=== PATIENT | male | born 1935 | race Caucasian/White ===

== ENCOUNTER 2020-11-25 18:06 | Emergency (ER) | payer OTHER ==
[~2020-11-25] VITALS: Ht 177.8 cm; Wt 109.1 kg
[2020-11-25 18:20] VITALS: TEMP 98.4
[2020-11-25] MEDS ORDERED: XANAX 0.5MG0.5 MG PO (18:46)
[2020-11-25] MEDS ORDERED: ZOCOR 40MG40 MG PO (18:47)
[2020-11-25] MEDS ORDERED: COZAAR100 MG PO (18:47)
[2020-11-25] MEDS ORDERED: SYNTHROID0.112 MG/T PO (18:47)
[2020-11-25] MEDS ORDERED: ZOLOFT 50MG50 MG PO (18:48)
[2020-11-25] MEDS ORDERED: NEURONTIN100 MG/CAP PO (18:48)
[2020-11-25 19:56] VITALS: BP 160/86; PULSE 89
== END 2020-11-25 19:57 | disposition home or self-care (01) ==
LOC: COL.ER 18:06
DX: M25.512 Pain in left shoulder (principal); I10 Essential (primary) hypertension; E78.5 Hyperlipidemia, unspecified; F41.9 Anxiety disorder, unspecified; E07.9 Disorder of thyroid, unspecified; Z88.6 Allergy status to analgesic agent; V43.52XA Car driver injured in collision with other type car in traffic accident, initial encounter